=== PATIENT | male | born 1945 | race Caucasian/White ===

== ENCOUNTER 2022-08-26 08:31 | Outpatient (RCR) | payer OTHER, SELFPAY ==
--- NOTE | 2022-08-26 18:37 | PT.OPE ---
[facility] Start: 08/26/22 08:41 Freq: Status: Active Protocol: Document 08/26/22 18:03 BMS (Rec: 08/26/22 18:33 BMS [id number]) E-signed By Rebecca Blood PT Physical Therapy Outpatient Evaluation Insurance Information Recert Due Date 11/22/22 Insurance Name Medicare B Medical Diagnosis M16.11 unilateral primary osteoarthritis R hip Z96.641 (s/p 09/01/22) Treating Diagnosis R hip pain M25.551 M25. 562 stiffness R hip Referring MD Stef Cuello MD Subjective Subjective have had back pain for a long, long time. spine doctor looked at my x-ray and said I should have my hip looked at so I did and they said it was severe arthritis so having it replaced on 09/01. my has had hip replaced x 2 ( dislocated a couple of times) and some other surgeries also so I kind of know what to expect. live in 1 floor home ( basement but don't have to go into it except for salt in softener, where furnace and water heater etc are) everything else on main floor. ramp to get in, walk in shower with molded seat and removable shower head, grab bars, high toilet with grab bar. have reachers and walkers from my 's surgeries, R shoulder pain, did some therapy on that. can help me after surgery and son lives across the road if need help. heading to [place] in winter as soon as I can drive we will leave. having therapy after surgery closer to home at [facility] in [place] just up the road from my house. 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 take tylenol that helps Date of Last Physician Visit 08/18/22 Date of Surgery (If applicable) 09/01/22 Current Work Status Retired Occupation does drive semi locally in summer Precautions Treatment Precautions/Contraindications HTN white coat, crosseslegs, Therapy Limitations/Systems Review Communication Ability,Vision, Other Medical Problem Objective Range of Motion hip 90+ flex, ER and IR limited by pain and tightness, knee WNL ankle WNL Shoulder ROM WFL B, MMT shoulder flex 4/5, ER 3+/5 . tricep and shoulder depression 5/5 Strength MMT seated L LE grossly 5/5 R hip flex 4+/5 abduct 3+/5 ER 3/5, IR 4/5 quad HS ankle 5/5. Balance & Gait gait no gait aid mod antalgia with no AD, lacks hip ext use of FWW improved gait significantly. Posture head forward, mild knee flex, hip flex in standing Other/Pertinent Objective white coat HTN per patient, communicates well despite mild stutter, vision wears glasses Assessment Assessment/Impression Patient is pleasant 77 y.o. male referred to rehab services for 1 pre-op visit R CODIE scheduled 09/01/22, then will continue therapy post-op at [facility] in [place] as that is just up the road from his home. He presents today with pain in R hip rated as 6/ 10, is worse since on feet a lot yesterday - primary funcitonal limitations are: sleeping due to pain (up for ~ 1 hour or more at night, move to recliner), pain limiting walking to short distances, only able to help shop at one store can barely make it through grocery store due to pain. He reports symptoms are worsening, does take tylenol to help manage, does not currently use ice nor heat. He also has known chronic back pain with dx in EMR of: R hip OA, foraminal stenosis, spinal stenosis L 4-5 impinging B L5 nerve root, spondylosis, and R RC arthropathy. xray read by ortho in their note stated: severe right hip osteoarthrosis with 80-90% joint space narrowing, osteophyte formation, subchondral sclerosis. No acute fractures or avulsions. No signs of AVN. Patient was instructed in post -op CODIE ex program to begin today and continue prior and after surgery, in signs/ symptoms of infection, DVT, reasons to seek medical attention, use of ice for pain and edema, elevation of LE, lying supine and use of FWW. handouts likewise issued for post op CODIE cares, ex, precautions/contraindications and managment of mobility and symptoms. This will also serve as DC note as patient will not be returning to our clinic . Plan of Care Rehabilitation Potential Good Physical Therapy Goals MET 1) patient instructed in CODIE education, use of gait aid and precautions/ contraindications with CODIE. Pt to demo good technique with home ex program. Coordination/Communication With Referral Source Treatment Plan/Direct Interventions Gait Training,Self-Care/Home Management,Therapeutic Activities,Therapeutic Exercises Frequency/Duration 1 visit preop Patient Will Be Discharged From Therapy Completion of LTG(s),Skills Plateau,Independent w/HEP, Independently Progressing Evaluation Billing Untimed Code Treatment Minutes 30 Complexity Moderate Certification Information Initial Certification Date 08/26/22 Ending Certification Date 09/25/22 Provider Signature Shows Agreement With POC & Medical Necessity Physician Signature & Date Requested Please Sign/Date Here Physician Comment/Change : Physician NPI Number #
== END 2023-05-05 23:59 | disposition home or self-care (01) ==
PROVIDERS: Visit Provider Orthopaedic Surgery Sports Medicine
DX: M16.11 Unilateral primary osteoarthritis, right hip (principal); Z96.641 Presence of right artificial hip joint; Z74.09 Other reduced mobility; Z51.89 Encounter for other specified aftercare
CPT/HCPCS: 97110; 97116; 97162

== ENCOUNTER 2022-08-30 10:40 | Outpatient (CLI) | payer OTHER, SELFPAY | END 2022-08-30 10:41 | disposition home or self-care (01) | PROVIDERS: Visit Provider Orthopaedic Surgery Sports Medicine | DX: Z01.818 Encounter for other preprocedural examination (principal) | CPT/HCPCS: 36415; 86850; 86900; 86901 ==

== ENCOUNTER 2022-09-01 08:46 | Day surgery (SDC) | payer OTHER, SELFPAY ==
[2022-08-31 15:15] VITALS: BP 132/77; PULSE 59; RESP 18; O2SAT 96
[2022-09-01] VITALS (23 sets, daily range): BP systolic 116–159; BP diastolic 59–112; PULSE 58–85; RESP 14–18; TEMP 36.2–36.9; O2SAT 93–99; BMI 26.4
[2022-09-01] MEDS: fentaNYL 100 MCG/2 ML inj IVP (08:58)
[2022-09-01] MEDS: MIDAZOLAM HCL 1 MG/ML inj IVP (08:58)
[2022-09-01] MEDS: LACTATED RINGERS 1000 ML 1,000 ML 100 ML IV ×2 (09:00→12:21)
[2022-09-01] MEDS: SODIUM CHLORIDE 0.9 % (FLUSH) 10 ML SYRINGE IVF (09:38)
[2022-09-01] MEDS: ACETAMINOPHEN 500 MG TABLET 1000 MG PO ×2 (09:46→18:08)
[2022-09-01] MEDS: OXYCODONE (CR) 10 MG TAB.ER.12H PO (09:46)
[2022-09-01] MEDS: CELECOXIB 200 MG CAPSULE PO ×2 (09:47→21:19)
--- NOTE | 2022-09-01 10:59 | SUR.PREOP ---
TIME?OUT:?1105 PT/RN/MDA?VERIFICATION?OF?SURGICAL?SITE,?PROCEDURE,?AND?CONSENT OBTAINED?PRIOR?TO?INVASIVE?PROCEDURE.
--- NOTE | 2022-09-01 11:00 | CRLHL7_ITS ---
For Patients: As a result of the Cures Act, medical imaging exams and procedure reports are released immediately into your electronic medical record. You may view this report before your referring provider. If you have questions, please contact your health care provider. Indication: Hip replacement surgery Technique: AP hip fluoroscopic image. Fluoroscopy time 43.3 seconds. Findings/Impression: Hardware from a right total hip arthroplasty is in satisfactory position. Dictated by Nabor Bryson MD @ 09/01/2022 4:34:48 PM (Electronically Signed)
--- NOTE | 2022-09-01 11:19 | P.NB_ITS ---
Nerve Block Nerve Block Time Seen by Provider: 11:05 Date Seen: 09/01/22 Type of block requested by surgeon for post-operative analgesia: GRIFFIN/LFCN Side: right Time out performed: Yes Verification of patient name: Yes Verification of date of : Yes Site marking: site marked Name of person performing procedure: Gabriele Continuous monitoring Was continuous monitoring of O2 sat, B/P, axminster rug setter, recorded every 15 minutes?: Yes Procedure Checklist: sterile prep, needles and gloves Ultrasound guided. Images saved: Yes Medications given in 5ml increments after negative aspiration: Ropivicaine %: 0.5 mL: 30 Needle gauge: 20 Decadron (mg): 10 Precedex (mcg): 25 Patient tolerated procedure well: Yes Additional comments: Needle noted below psoas tendon needle noted adjacent to LFCN Block Charges Block Charge (with Pro Fee): Other Periph Nerve Block Use of Ultrasound Machine for Block: Yes- US Guidance/pain block
--- NOTE | 2022-09-01 11:54 | CRLHL7_ITS ---
For Patients: As a result of the Cures Act, medical imaging exams and procedure reports are released immediately into your electronic medical record. You may view this report before your referring provider. If you have questions, please contact your health care provider. INDICATION: Follow up right hip arthroplasty. TECHNIQUE: AP portable view of the pelvis and cross table lateral view of the right hip. COMPARISON : Pre-surgical images August 12, 2022. FINDINGS: New right hip arthroplasty. The components are adequately aligned and well seated. IMPRESSION: Postsurgical change from right total hip arthroplasty. Dictated by Roe Bradshaw MD @ 09/02/2022 9:11:02 AM (Electronically Signed)
[2022-09-01] MEDS: CEFAZOLIN 2 GM in 0.9 % SODIUM CHLORIDE Mini-bag 100 ML IVPB ×2 (11:55→18:00)
[2022-09-01] MEDS: TRANEXAMIC ACID 100 MG/ML INJ 1000 MG IV (12:00)
--- NOTE | 2022-09-01 12:12 | W.ANESCHARGE ---
Anesthesia Charges Start Date/Time Anesthesia Start Date: 09/01/22 Anesthesia Start Time: 11:41 Stop Date/Time Anesthesia Stop Date: 09/01/22 Anesthesia Stop Time: 14:19 Summary Emergency: No Extremes of Age: Over 68-CPT 24474
--- NOTE | 2022-09-01 13:29 | PM.ORPRC ---
Procedure Note Date of procedure: 09/01/22 Procedure: PREOPERATIVE DIAGNOSIS: 1. Right hip osteoarthritis, severe, primary POSTOPERATIVE DIAGNOSIS: 1. Right hip osteoarthritis, severe, primary PROCEDURE: 1. Right total hip arthroplasty-anterior approach 2. 20311 - intraoperative fluoroscopy up to 1 hour. SURGEON: Stef Cuello MD. EPIC PRELUDE ANALYST: Gerald Toribio PA-C; CATARINO Robison - Of note, a skilled food service assistant was critical for this case to aid in patient positioning, tissue retraction, limb manipulation/positioning, and closure. ANESTHESIA: General endotracheal anesthetic EBL: 400 mL IMPLANTS: DePuy J&J uncemented total hip [place] cup size 54, hole eliminator, +4 neutral liner Actis stem, high offset, size 7 +5 mm ceramic 36 mm head COMPLICATIONS: None evident INDICATIONS: The patient is a pleasant 77-year-old male who has experienced severe right hip pain and difficulty bearing weight. Workup included x-rays which revealed severe osteoarthrosis in the hip. Given the deformity, the dysfunction, and the pain, as well as the failure of nonoperative management, recommendation was made for surgery. FINDINGS: Full-thickness chondral loss broadly to the femoral head with perimeter osteophytes. Significant sclerosis within the acetabulum diffusely. Moderate effusion upon entering the joint. DESCRIPTION OF PROCEDURE: Following a thorough discussion of risks, benefits, and alternatives consent was obtained and the right hip was marked. The patient was brought to the operating room and placed supine on the operating table. Induction of anesthesia was undertaken. 2 g IV Ancef and 1 g tranexamic acid was administered within 1 hr of incision preoperatively. Proper time-out was performed identifying proper patient, site, procedure. The operative extremity was prepped and draped in the appropriate sterile fashion using ChloraPrep after the patient was positioned on the [place] table with head in neutral alignment and all bony prominences well padded. C-arm fluoroscopic imaging was utilized to confirm proper pelvis rotation and position, and to get true AP films of both the contralateral left, and the affected right hip. This is for comparison. A longitudinal incision was made starting approximately 1 cm distal to the ASIS, and 3-4 cm lateral. The incision was extended distally aiming toward the lateral border the patella. Sharp incision through skin and bovie cautery through the subcutaneous tissue allowed identification of the TFL fascia. This was sharply divided, and the fascia bluntly released from the muscle fibers as we dissected medial. Upon coming to the medial border, we were able to retract the TFL laterally, and penetrated the deeper fascia and identify the crossing circumflex vessels. These were ligated/cauterized. The rectus was elevated from the capsule, and retractors placed laterally and medially along the femoral neck to help with visualization of the capsule. We then performed an inverted T capsulotomy. The capsule was tagged for later repair. Retractors were placed inside the capsule. The femoral neck was visualized after releasing medially down to the lesser trochanter, along the saddle laterally, and up onto the acetabulum. The femoral neck cut was made in line with our preoperative templating. The head was removed in a single piece, and sized. We turned our attention to acetabular preparation. Initially, the labrum was resected from around the perimeter, the pulvinar was excised, allowing us to visualize the false wall. We started the reaming with a 43 mm reamer. This was medialized down to the true wall. We then enlarged our reamers sequentially up to one size less than the selected cup size. We trialed at the same size and found it to have an excellent fit. The selected cup was then opened, inserted, and impacted in line with the goal of 40? of abduction, and 20-25? of anteversion. This was confirmed on C-arm fluoroscopic imaging to be in the appropriate/goal position. Once the cup was placed we placed a hole eliminator and a liner consistent with preop planning. Attention was turned to the femoral preparation. The limb was extended, externally rotated, and adducted. The posteromedial capsule was released, as retractors were placed allowing excellent access to the proximal femur. Initially a box worker was followed by canal finder followed by various broaches. We broached sequentially up to the size noted above, found it to have excellent rotational control, and trialing various heads and necks, revealed that appropriate neck offset, and the above noted head size provided the greatest stability, and hinduism of length, and offset. C-arm fluoroscopic imaging confirmed position of the stem, as well as leg lengths, which were compared with the pre procedure all fluoroscopic images. Trial implants were removed, the real femoral stem inserted, as was the appropriate head. After reducing, the leg was placed through range of motion and stability was confirmed anterior, posterior, and lateral. A 3 min Betadine soak was then performed, and thorough irrigation with normal saline followed. Closure of the capsule was performed with #1 PDS. Bleeding was confirmed to be controlled at this stage, and the TFL fascia was closed with #0 strata fix. Subcutaneous, and subcuticular closure was performed with 2-0 Vicryl and 4-0 Monocryl, respectively. Dressings were applied, and the patient was awoken from anesthesia and transferred the PACU in stable condition. A skilled food service assistant was critical for this case to aid in patient positioning, tissue retraction, acetabular and proximal femoral exposure, limb manipulation/positioning, dislocation/relocation, patient safety, and closure. PLAN: 1. Weight bear as tolerated operative extremity. 2. 23 hr perioperative antibiotics. 3. Ice. 4. PT/OT consults for ambulation assistance/mobility education. 5. Social work consult for discharge planning. 6. DVT prophylaxis with at SCDs, Arpan Hose, and Xarelto x5 days followed by aspirin for a total of 1 month..
--- NOTE | 2022-09-01 14:19 | W.ANESCHARGE ---
Anesthesia Charges Start Date/Time Anesthesia Start Date: 09/01/22 Anesthesia Start Time: 11:41 Stop Date/Time Anesthesia Stop Date: 09/01/22 Anesthesia Stop Time: 14:19 Summary Emergency: No Extremes of Age: Over 68-CPT 03888
--- NOTE | 2022-09-01 15:34 | P.IMCN_ITS ---
Date of Consult Consult date: 09/01/22 Requesting Physician: Orthopedics Primary Care Provider: Luna Reese MD Consult Narrative Reason for consult: Postoperative management of medical problems Narrative: Ry Perea is a 77 year old male admitted to the hospital for right total hip arthroplasty. Procedures performed by Dr. Cuello. No operative complications. Patient is postoperative now still having some sedation from anesthesia. He has no complaints. No chills, shortness of breath, nausea, pain. Preoperatively he was doing well he had no health concerns before s urgery. No significant perioperative issues identified on preop exam. Review of Systems Narrative: No recent illness or injury. PFSH PFSH Medical History (Updated 09/01/22 @ 15:41 by Bryson Lamas MD) Bilateral hip pain BPH w urinary obs/LUTS Retention of urine Surgical History (Updated 08/24/22 @ 14:42 by Gabby Ugalde RN) History of dental surgery History of left cataract extraction (~2019) History of prostate surgery (~2015) Family History (Updated 08/24/22 @ 14:42 by Gabby Ugalde RN) Father Stroke Mother Dementia Sister Skin cancer Social History (Updated 09/01/22 @ 15:38 by Bryson Lamas MD) Narrative: He lives with his in [place] in their own home. They have no steps to get into the house and he can live on 1 level. There is a 1 step rise between the living room and kitchen. He does not smoke. He does not drink alcohol. He is working part-time as an over the road armored truck driver. He does not work in the winter. He and his hope to go to [place] for the winter in about 1 month. 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 Code status is full. Highest level of school completed/degree received: 9th grade Smoking Status: Never smoker Do you use any of these nicotine containing products: None Second hand tobacco smoke exposure: No How often do you have a drink containing alcohol: never AUDIT-C Alcohol total score: 0 Non-prescribed substance use: denies use Caffeine: No service: No Meds Home Medications and Allergies Home Medications Medication Instructions Recorded Confirmed Type cetirizine 10 mg tablet 10 mg PO DAILY PRN 07/30/22 09/01/22 History multivitamin (Multiple Vitamins 1 tab PO DAILY 07/30/22 09/01/22 History tablet) acetaminophen 650 mg 650 mg PO Q12H PRN 08/12/22 09/01/22 History tablet,extended release (Tylenol Arthritis Pain) Allergies Allergy/AdvReac Type Severity Reaction Status Date / Time pseudoephedrine Allergy Intermediate urinary Verified 09/01/22 09:11 issues lisinopril AdvReac Intermediate Cough Verified 09/01/22 09:11 Exam Narrative: Exam Narrative: He is sleepy but arouses to voice. Eyes are normal. Pupils are small. Oropharynx is normal. Neck is supple without mass or adenopathy. Respirations are clear to auscultation. Breathing is unlabored. Cardiovascular: S1, S2, regular rate and rhythm. No murmur gallop or rub. Abdomen: Bowel sounds active. Abdomen is soft without tenderness or mass. Hip incision is covered with a Mepilex bandage no bruising or redness or drainage noted on the dressing. Distally he has intact pulses strength and sensation in both feet and ankles. No edema. Const: Vital Signs, click to edit/add: Vital Signs - 24 hr 09/01/22 09:09 09/01/22 10:10 09/01/22 11:00 Temperature 98.4 F Pulse Rate 76 66 65 Respiratory Rate 16 16 16 Blood Pressure 155/93 H 143/94 H 159/80 H Pulse Oximetry 97 98 98 Oxygen Delivery Me thod Room Air Nasal Cannula Nasal Cannula Oxygen Flow Rate 2 2 09/01/22 11:05 09/01/22 11:10 09/01/22 14:44 Temperature 97.4 F L Pulse Rate 64 58 L 66 Respiratory Rate 16 16 15 Blood Pressure 151/78 H 124/70 143/87 H Pulse Oximetry 97 97 99 Oxygen Delivery Me thod Nasal Cannula Nasal Cannula Room Air Oxygen Flow Rate 2 2 09/01/22 14:22 09/01/22 14:16 09/01/22 14:25 Temperature 97.7 F Pulse Rate 72 71 73 Respiratory Rate 16 15 15 Blood Pressure 137/60 137/60 134/83 Pulse Oximetry 94 97 98 Oxygen Delivery Me thod Nasal Cannula Nasal Cannula Oxygen Flow Rate 2 2 09/01/22 14:30 09/01/22 14:35 09/01/22 14:40 Temperature Pulse Rate 72 67 64 Respiratory Rate 14 15 16 Blood Pressure 147/98 H 141/83 H 137/68 Pulse Oximetry 98 98 98 Oxygen Delivery Me thod Nasal Cannula Room Air Room Air Oxygen Flow Rate 2 Documenting provider has reviewed patient's vital signs: yes Assessment and Plan Assessment and plan (1) Osteoarthritis of right hip: Problem comment: Severe. Status post hip arthroplasty. Doing well. Dissipate uncomplicated recovery with routine pain management and routine therapy. Status: Acute (2) BPH w urinary obs/LUTS: Problem comment: Symptoms improved after prostate surgery 6 years ago. Monitor postoperatively for evidence of urinary retention. Status: Acute Plan Anticipate uncomplicated recovery with routine management of pain. Routine physical therapy. Probable discharge to home tomorrow with his . Monitor for signs of urinary retention or complications from surgery. Total time spent is 25 minutes, 15 minutes in coordination of care discussing with patient and ongoing evaluation and management of hip surgery, limitations in disabilities related to surgery.
[2022-09-01] MEDS: LACTATED RINGERS 1000 ML 1,000 ML 75 ML IV (18:00)
[2022-09-01] MEDS: OXYCODONE 5 MG TABLET PO (18:08)
--- NOTE | 2022-09-01 19:21 | PC.NURSE ---
Nursing Care Hours: [id number] Pt arrived from PACU awake but drowsy. Pt moving around in bed trying to get comfortable, assisted with readjusting multiple times. Denies pain or SOB. CMS intact, family at bedside. Pt assisted up to the recliner for comfort and pt appears more relaxed. 1 person assist to bathroom for void. c/o dull achy pain, oxycodone and tylenol given. Encouraged to stay on top of pain management. Pt pleasant, alert and oriented. Tolerating food, denies nausea. Dressing CDI, ice applied.
[2022-09-01] MEDS: SENNOSIDES 1 TAB TABLET 2 TAB PO (21:18)
[2022-09-02 00:15] VITALS: BP 130/65; PULSE 70; RESP 18; TEMP 37; O2SAT 92
[2022-09-02] MEDS: ACETAMINOPHEN 500 MG TABLET 1000 MG PO ×2 (00:20→06:01)
[2022-09-02] MEDS: OXYCODONE 5 MG TABLET PO ×2 (01:01→08:55)
[2022-09-02] MEDS: CEFAZOLIN 2 GM in 0.9 % SODIUM CHLORIDE Mini-bag 100 ML IVPB ×2 (02:10→09:15)
[2022-09-02 03:00] VITALS: BP 119/65; PULSE 68; RESP 18; TEMP 37; O2SAT 95
--- NOTE | 2022-09-02 05:41 | PC.NURSE ---
Shift note: The pt has been pleasant and cooperative. Dressing to the right hip has been C/D/I; the pt has been reporting mild do moderated pain to the right hip; pain has been well managed with ice and pain medications. 1-assist with a gait belt and walker- tolerated the activity. The pt had uneventful night.
[2022-09-02 06:47] LABS: Basophils Percent Auto 0.1 % (0.0-3.0); Hematocrit 38.4 % (37.0-53.0); Hemoglobin* 12.8 gm/dL (13.5-17.5); Immature Granulocytes Pct Auto 0.2 %; Lymphocytes Percent Auto 7.4 % (20-44); Mean Corpuscular HGB Conc 33 gm/dL (32-36); Mean Corpuscular Hemoglobin 31 pg (26-34); Mean Corpuscular Volume 94 fL (80-100); Monocytes Percent Auto 9.4 % (0.0-11.0); Neutrophils Percent Auto 82.9 % (42.0-72.0); Platelet Count* 217 K/uL (140-440); RDW Coefficient of Variation % 12.5 % (11.5-15.5); Red Blood Count 4.07 m/uL (4.30-5.90); White Blood Count* 14.91 K/uL (4.50-11.00)
[2022-09-02 06:49] LABS: Slide Review Reflex No
[2022-09-02 07:00] VITALS: BP 123/76; PULSE 68; PULSE 69; RESP 18; TEMP 37.1; O2SAT 96
[2022-09-02 07:05] LABS: Potassium* 4.3 mmol/L (3.6-5.1); Sodium* 137 mmol/L (135-149)
[2022-09-02 07:08] LABS: Creatinine* 0.9 mg/dL (0.5-1.5); Est. Creatinine Clearance* 65.74; Estimated Glomerular Filt Rate 87 ml/min
[2022-09-02 07:09] LABS: Blood Urea Nitrogen* 25 mg/dL (7-30)
[2022-09-02] MEDS: CELECOXIB 200 MG CAPSULE PO (09:14)
[2022-09-02] MEDS: SENNOSIDES 1 TAB TABLET 2 TAB PO (09:15)
[2022-09-02] MEDS: MULTIVITAMIN/MINERALS 1 TABLET 1 TAB PO (09:15)
[2022-09-02] MEDS: RIVAROXABAN 10 MG TABLET PO (09:15)
[2022-09-02 13:35] VITALS: PULSE 63; RESP 18
--- NOTE | 2022-09-02 13:36 | PC.NURSE ---
Nurse Care Hours: [id number] Pt this shift sitting comfortably up in chair, tolerating regular diet. Pain controlled with scheduled Tylenol and PRN oxycodone see eMAR. Ambulating 1 assist with walker and gait belt. Discharged to home with . Sheetmetal Worker went over instruction and wound care, sign and symptoms to look for. All questions and concerns answered. Wheeled out to car in stable condition.
--- NOTE | 2022-09-02 14:14 | P.ORPN_ITS ---
Subjective Subjective Date Seen: 09/02/22 Principal diagnosis: Status postop day 1 right total hip arthroplasty - anterior approach Interval history: Patient reports doing well. No acute events over night. Pain managed with scheduled /PRN medications and ice. DVT prophylaxis rivaroxaban, bilateral knee high Arpan stockings, and SCDs. Denies fevers, chills, aches, N/V, CP, SOB/[place], tachycardia, or lightheadedness. Slight headache that he says comes from not e ating. Just finished breakfast. Ortho Exam Narrative Exam Narrative: -Patient appears comfortable in bed; no apparent acute distress -Alert and oriented times 3 -Operative hip swollen; soft tissues supple; no obvious erythema. Ecchymosis minimal. Warmth appropriate -Surgical dressing clean, dry, intact; no obvious drainage, no erythematous streaking peripheral to the bandage -Bilateral calves soft and supple; no significant swelling, edema, tenderness, erythema, discoloration, warmth, or palpable cords -2+ DP/PT pulses, intact dermatomes and myotomes distally (5/5 strength). Numbness about the lateral femoral cutaneous nerve distribution. 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; stutter speech Const Vital Signs, click to edit/add: Vital Signs - 24 hr 09/01/22 14:44 09/01/22 14:22 09/01/22 14:16 Temperature 97.4 F L 97.7 F Pulse Rate 66 72 71 Pulse Rate [Right Pulse Oximeter] Respiratory Rate 15 16 15 Blood Pressure 143/87 H 137/60 137/60 Blood Pressure [Right Arm] Pulse Oximetry 99 94 97 Oxygen Delivery Method Room Air Nasal Cannula Oxygen Flow Rate 2 09/01/22 14:25 09/01/22 14:30 09/01/22 14:35 Temperature Pulse Rate 73 72 67 Pulse Rate [Right Pulse Oximeter] Respiratory Rate 15 14 15 Blood Pressure 134/83 147/98 H 141/83 H Blood Pressure [Right Arm] Pulse Oximetry 98 98 98 Oxygen Delivery Method Nasal Cannula Nasal Cannula Room Air Oxygen Flow Rate 2 2 09/01/22 14:40 09/01/22 14:50 09/01/22 15:00 Temperature 97.1 F L 97.1 F L Pulse Rate 64 68 Pulse Rate [Right Pulse Oximeter] 63 Respiratory Rate 16 18 18 Blood Pressure 137/68 Blood Pressure [Right Arm] 151/112 H 125/77 Pulse Oximetry 98 96 Oxygen Delivery Method Room Air Room Air Room Air Oxygen Flow Rate 09/01/22 15:30 09/01/22 15:45 09/01/22 16:00 Temperature Pulse Rate Pulse Rate [Right Pulse Oximeter] 65 65 65 Respiratory Rate Blood Pressure Blood Pressure [Right Arm] 131/74 127/65 117/64 Pulse Oximetry 96 96 96 Oxygen Delivery Method Room Air Room Air Room Air Oxygen Flow Rate 09/01/22 16:30 09/01/22 17:00 09/01/22 18:00 Temperature Pulse Rate Pulse Rate [Right Pulse Oximeter] 66 66 70 Respiratory Rate Blood Pressure Blood Pressure [Right Arm] 144/101 H 116/59 L 118/64 Pulse Oximetry 93 96 96 Oxygen Delivery Method Room Air Room Air Room Air Oxygen Flow Rate 09/01/22 19:00 09/01/22 21:30 09/01/22 20:15 Temperature 98.4 F 98.2 F Pulse Rate Pulse Rate [Right Pulse Oximeter] 75 81 85 Respiratory Rate 18 16 Blood Pressure Blood Pressure [Right Arm] 116/66 122/76 117/81 Pulse Oximetry 96 96 97 Oxygen Delivery Method Room Air Room Air Oxygen Flow Rate 09/02/22 00:15 09/02/22 03:00 09/02/22 07:00 Temperature 98.6 F 98.6 F Pulse Rate Pulse Rate [Right Pulse Oximeter] 70 68 68 Respiratory Rate 18 18 18 Blood Pressure Blood Pressure [Right Arm] 130/65 119/65 Pulse Oximetry 92 95 Oxygen Delivery Method Room Air Room Air Oxygen Flow Rate 09/02/22 07:00 09/02/22 13:35 Temperature 98.8 F Pulse Rate 63 Pulse Rate [Right Pulse Oximeter] 69 Respiratory Rate 18 18 Blood Pressure Blood Pressure [Right Arm] 123/76 Pulse Oximetry 96 Oxygen Delivery Method Room Air Oxygen Flow Rate Assessment and Plan Assessment and plan (1) S/P total hip arthroplasty: Problem details: POD 1, total hip arthroplasty - anterior approach Status: Acute (2) Osteoarthritis of right hip: Status: Acute (3) BPH w urinary obs/LUTS: Problem details: Symptoms improved after prostate surgery 6 years ago. Monitor postoperatively for evidence of urinary retention. Status: Acute Plan - Complete 23 hour perioperative antibiotics. - PT/OT consult for education and assistance. - Social work consult for discharge planning - Prescribed analgesics as needed - DVT prophylaxis: Rivaroxaban, bilateral knee high Arpan Hose stockings and SCDs - Anticipation is for discharge to home with spouse 09/02/2022 if the patient remains medically stable, pain is controlled, and they are safe with mobilization.
--- NOTE | 2022-09-02 14:17 | PM.DS1 ---
DS: Providers Provider Date Seen: 09/02/22 Date of admission: Med/Surg Recovery 09/01/2022 Primary care physician: Luna Reese MD Consults: 09/01/22 14:56 Consult to Occupational Therapy [CONS] Routine Comment: Reason(s) for OT Consult:: ADLs Prior to Discharge Any Restrictions?:: No Restrictions Comment: Consult to Physical Therapy [CONS] Routine Comment: Ambulate in the landin today Reason(s) for PT Consult:: Evaluate and Treat Any Restrictions?:: No Restrictions Comment: Nursing Activity Consult to Physician [CONS] Routine Comment: Consulting Provider: Hospitalists Has provider been notified: No Consult to Printing Services Coordinator [CONS] Routine Comment: Reason for Consult:: Discharge Planning Needs Attending Physician on discharge: Stef Cuello MD Date of Discharge: 09/02/22 DS: Diagnosis Discharge Diagnosis (1) Osteoarthritis of right hip: Status: Acute (2) S/P total hip arthroplasty: Status: Acute Problem details: POD 1, total hip arthroplasty - anterior approach DS: Summary Hospital Course Hospital Course: The patient has a history of right hip osteoarthritis, primary, severe. After appropriate preoperative evaluation, the patient underwent right total hip arthroplasty. Postoperatively given anticoagulation for deep vein thrombosis prophylaxis. They progressed to PT/OT and were felt ready and prepared for discharge to home with appropriate pain medication and anticoagulation medications. Time Spent with Patient Time attestation: Total time spent providing and/or coordinating discharge services: Exam Const: Vital Signs, click to edit/add: Vital Signs - 24 hr 09/01/22 14:44 09/01/22 14:22 09/01/22 14:25 Temperature 97.4 F L Pulse Rate 66 72 73 Pulse Rate [Right Pulse Oximeter] Respiratory Rate 15 16 15 Blood Pressure 143/87 H 137/60 134/83 Blood Pressure [Ri ght Arm] Pulse Oximetry 99 94 98 Oxygen Delivery Me thod Room Air Nasal Cannula Oxygen Flow Rate 2 09/01/22 14:30 09/01/22 14:35 09/01/22 14:40 Temperature Pulse Rate 72 67 64 Pulse Rate [Right Pulse Oximeter] Respiratory Rate 14 15 16 Blood Pressure 147/98 H 141/83 H 137/68 Blood Pressure [Ri ght Arm] Pulse Oximetry 98 98 98 Oxygen Delivery Me thod Nasal Cannula Room Air Room Air Oxygen Flow Rate 2 09/01/22 14:50 09/01/22 15:00 09/01/22 15:30 Temperature 97.1 F L 97.1 F L Pulse Rate 68 Pulse Rate [Right Pulse Oximeter] 63 65 Respiratory Rate 18 18 Blood Pressure Blood Pressure [Ri ght Arm] 151/112 H 125/77 131/74 Pulse Oximetry 96 96 Oxygen Delivery Me thod Room Air Room Air Room Air Oxygen Flow Rate 09/01/22 15:45 09/01/22 16:00 09/01/22 16:30 Temperature Pulse Rate Pulse Rate [Right Pulse Oximeter] 65 65 66 Respiratory Rate Blood Pressure Blood Pressure [Ri ght Arm] 127/65 117/64 144/101 H Pulse Oximetry 96 96 93 Oxygen Delivery Me thod Room Air Room Air Room Air Oxygen Flow Rate 09/01/22 17:00 09/01/22 18:00 09/01/22 19:00 Temperature Pulse Rate Pulse Rate [Right Pulse Oximeter] 66 70 75 Respiratory Rate Blood Pressure Blood Pressure [Ri ght Arm] 116/59 L 118/64 116/66 Pulse Oximetry 96 96 96 Oxygen Delivery Me thod Room Air Room Air Room Air Oxygen Flow Rate 09/01/22 21:30 09/01/22 20:15 09/02/22 00:15 Temperature 98.4 F 98.2 F 98.6 F Pulse Rate Pulse Rate [Right Pulse Oximeter] 81 85 70 Respiratory Rate 18 16 18 Blood Pressure Blood Pressure [Ri ght Arm] 122/76 117/81 130/65 Pulse Oximetry 96 97 92 Oxygen Delivery Me thod Room Air Room Air Oxygen Flow Rate 09/02/22 03:00 09/02/22 07:00 09/02/22 07:00 Temperature 98.6 F 98.8 F Pulse Rate Pulse Rate [Right Pulse Oximeter] 68 68 69 Respiratory Rate 18 18 18 Blood Pressure Blood Pressure [Ri ght Arm] 119/65 123/76 Pulse Oximetry 95 96 Oxygen Delivery Me thod Room Air Room Air Oxygen Flow Rate 09/02/22 13:35 Temperature Pulse Rate 63 Pulse Rate [Right Pulse Oximeter] Respiratory Rate 18 Blood Pressure Blood Pressure [Ri ght Arm] Pulse Oximetry Oxygen Delivery Me thod Oxygen Flow Rate DS: Data Data Completed and Pending Labs on day of discharge: Labs from last 24 hours 09/02/22 09/02/22 06:27 06:27 WBC 14.91 H RBC 4.07 L Hgb 12.8 L Hct 38.4 MCV 94 MCH 31 MCHC 33 RDW Coeff of Rosita 12.5 Plt Count 217 Neut % (Auto) 82.9 H Lymph % (Auto) 7.4 L [place] % (Auto) 9.4 Eos % (Auto) 0.0 Baso % (Auto) 0.1 Neut # (Auto) 12.40 H Lymph # (Auto) 1.10 [place] # (Auto) 1.40 H Eos # (Auto) 0.00 Baso # (Auto) 0.00 Abs Immat Gran (auto) 0.00 Imm/Tot Granulo (auto) 0.2 Sodium 137 Potassium 4.3 BUN 25 Creatinine 0.9 Estimated Creat Clear 65.74 Estimated GFR 87 Discharge Plan Discharge Disposition: Home, Self-Care Discharging Surgeon: Stef Cuello Follow-Up Appointment: 1 week PO with ROBEL Prescriptions: New sennosides-docusate sodium [Senna-S] 8.6-50 mg tablet 1 - 4 tab-cap PO BID PRN (Reason: constipation) Qty: 60 0RF Rx Instructions: Hold medication if experiencing loose stools. aspirin 81 mg tablet,delayed release (DR/EC) 81 mg PO BID Qty: 50 0RF Rx Instructions: Medication to help prevent blood clots postoperatively; take TWICE daily. acetaminophen 500 mg capsule 500 - 1,000 mg PO Q6H MDD 4000mg PRNQty: 100 0RF oxycodone 5 mg tablet 2.5 - 5 mg PO Q4-6H MDD 6 PRN (Reason: pain) Qty: 42 0RF Rx Instructions: Take as needed for postop pain: 2.5mg mild pain, 5mg moderate-severe pain; wean as tolerated. rivaroxaban 10 mg tablet 10 mg PO DAILY Qty: 4 0RF Rx Instructions: Medication for deep vein clot prevention post surgery. Complete this medication before starting Aspirin. Continued cetirizine 10 mg tablet 10 mg PO DAILY PRN multivitamin [Multiple Vitamins] Tablet 1 tab PO DAILY acetaminophen [Tylenol Arthritis Pain] 650 mg tablet extended release 650 mg PO Q12H PRN Activity Level: Activity as Tolerated, Weight Bearing as Tolerated, Use Cane and Use Walker Discharge Diet: Regular Patient Instructions: Acetaminophen (By mouth), Aspirin (By mouth), Oxycodone, Rapid Release (By mouth), Rivaroxaban (By mouth), Senna (By mouth), Surgical Site Infections (DC), Anterior Hip Replacement (DC) Additional Instructions: Wound: ?Do not remove original dressing; we will remove this at first postop visit in 1 week. Only remove dressing if integrity is in question. ?No immersing wound in water; showering okay; light scrub with your hand and body soap, rinse, dab dry ?Sutures are under the skin, will dissolve; allow surgical glue to come off naturally; do not scrub the wound or apply ointments/lotions ?Call our office with any redness that streaks, excessive drainage from the wound, or wound gapping. Ice/Elevate: ?Ice as needed for swelling and discomfort (cryocuff or ice pack); elevate frequently above the heart DEBBI socks: ?Wear for 1 month, remove for 1 hour 3 times per day ?These are frustrating to take on/off, but are important for blood clot prevention for 1 month after surgery Blood Clot Prevention (DVT): ?Medication: Rivaroxaban, and transition to 81 mg aspirin by mouth twice daily (total one month of protection). Driving: ?Do not drive while taking narcotic pain medication ?Anticipate 4-6 weeks no driving if operative leg is driving leg Dental: ?No elective dental work for 6 months post-op. If there is an urgent/emergent dental need, contact our office for an antibiotic prescription. Smoking/Alcohol: ?Do not smoke; do no drink alcohol especially when taking postoperative oral narcotic medication Seek Care from you Primary Care Provider if you experience the following issues in the postoperative phase and beyond: ?Bacterial infections such as: pneumonia, bacterial skin infection (cellulitis), UTI, high fever, chills unrelated to the operative body part - call your primary care physician urgently for treatment in hopes to protect your health and the metal implant. Referrals: ?PT, OT per patient preference - evaluate treat total hip arthroplasty protocol (gait training, ROM, ADLs) Follow up: ?Ortho surgeon follow-up in 6 weeks; repeat radiographs AP pelvis, cross-table lateral operative hip ?PA-C visit in 1 week *If there are any acute concerns regarding your surgery, please call our orthopedic clinic ([phone]) Forms: Work/Release Restrictions Follow-up: Luna Reese MD [Primary Care Provider] - (Schedule appointment as needed) Gerald Toribio PA-C [Physician Software Support Specialist] - 09/07/22 10:00 am ([facility]) Discharge Orders: Discharge Order (Routine); Ordered 09/02/22 Ordered By: Gerald Toribio
== END 2022-09-02 11:35 | disposition home or self-care (01) ==
LOC: OR 08:53 → MEDSURG 08:55
PROVIDERS: PCP Family Medicine; Visit Provider Orthopaedic Surgery Sports Medicine
PROC: (CPT 27130; principal; 2022-09-01 11:00)
DX: M16.11 Unilateral primary osteoarthritis, right hip (principal); N13.8 Other obstructive and reflux uropathy; N40.1 Benign prostatic hyperplasia with lower urinary tract symptoms
CPT/HCPCS: 27130; 1214; 36415; 64450; 73501; 73502; 76000; 76942; 82565; 84132; 84295; 84520; 85025; 97110; 97116; 97161; 97165; 97535; 99100; A9153; A9270; C1776; J0330; J0690; J1100; J1170; J2250; J2370; J2704; J2795; J3010; J7120

== ENCOUNTER 2022-09-07 12:44 | Outpatient (CLI) | payer OTHER, SELFPAY ==
--- NOTE | 2022-09-07 13:00 | CRLHL7_ITS ---
For Patients: As a result of the Century Cures Act, medical imaging exams and procedure reports are released immediately into your electronic medical record. You may view this report before your referring provider. If you have questions, please contact your health care provider. INDICATION: Leg pain and swelling. THR on 09/01. TECHNIQUE: Ultrasound venous duplex lower right extremity. Compression venous exam was performed using ware-scale, color Doppler, and spectral Doppler analysis. COMPARISON: None. FINDINGS: Deep veins: Sonographic imaging demonstrates the right common femoral, deep femoral, superficial femoral, popliteal, posterior tibial and the contralateral left common femoral veins to be fully compressible with normal color Doppler blood flow. Superficial veins: Greater saphenous vein is fully compressible. Soft tissues: No popliteal cyst. IMPRESSION: Normal right lower extremity venous ultrasound, no sign of deep venous thrombosis. Dictated by Arnold Salazar MD @ 09/07/2022 2:22:28 PM (Electronically Signed)
== END 2022-09-07 12:45 | disposition home or self-care (01) ==
LOC: US 12:47
PROVIDERS: PCP Family Medicine; Visit Provider Physician Assistant Surgical
DX: M79.604 Pain in right leg (principal); R22.41 Localized swelling, mass and lump, right lower limb; Z96.649 Presence of unspecified artificial hip joint
CPT/HCPCS: 93971